=== PATIENT | female | born 1960 | race Caucasian/White ===

== ENCOUNTER → 2019-11-18 08:38 | Outpatient (CLI) | payer SELFPAY ==
--- NOTE | 2019-11-18 | PATH_ITS ---
Note [facility] Accession Number: [id number] TESTS RESULT FLAG UNITS REF RANGE LAB Clinician Provided Cytology Information No. of containers..01 Other (Miscellaneous) [A] 01 ABDOMINAL FLUID DIAGNOSIS: [A] 02 ABDOMINAL FLUID ATYPICAL CELLS PRESENT. IMMUNOHISTOCHEMISTRY STUDIES PENDING; RESULTS WILL BE REPORTED AN ADDENDUM. Comment: Attempts to reach Dr. Orozco were unsuccessful as of 1:10 on 11/21/19; voice mail left. Pathologist ICD10: 02 R18.0 02 DIAGNOSIS: Ascites Fluid: Poorly differentiated adenocarcinoma, primary site indeterminate. . IMMUNOHISTOCHEMISTRY RESULTS: GAB: Uniformly positive. CK7: Uniformly positive. MOC31: Uniformly positive. Huber-EP4: Uniformly positive. CK5/6: Focally positive. PAX-8: Negative. GATA3: Negative. CK20: Negative. Hep Par-1: Negative. Calretinin: Negative. WT1: Negative. P40: Negative. TTF1: Negative. Napsin-A: Negative. CDX2: Negative. Villin: Negative. Arginase: Negative. Synaptophysin: Negative. ER: Negative. . The neoplastic cells are uniformly immunopositive for GAB, CK7, MOC31, and Huber-EP4 with focal positivity of CK5/6. The neoplasm is immunonegative for CK20, ER, synaptophysin, p40, and calretinin. Organ-specific markers (WT-1, Hep Par-1, arginase, PAX-8, TTF1, napsin-A, GATA3, CDX2, and villin) are negative. These studies are consistent with a diagnosis of adenocarcinoma, primary site indeterminate. Please correlate these findings with clinical and imaging studies. . These interpretations were provided by Dr. Frances Matamoros. . IHC studies were performed on alcohol-fixed specimens and false negative results cannot be excluded. . * This test was developed and its performance characteristics determined by [employer]. It has not been cleared or approved by the U.S. Food and Drug Administration. The FDA has determined that such clearance or approval is not necessary. This test is used for clinical purposes. It should not be regarded as investigational or for research. MRV/11/28/2019 Addendum Electronically Signed by Edith Cook MD, Pathologist 02 Edith Cook MD, Pathologist NPI- [id number] Charly Cardoso, [place] [facility] ([facility]) 01 50 CC, YELLOW, HAZY /LCS 11/20/2019 1211 Local FLAG LEGEND: L-Low Normal,H-High Normal,LL-Alert Low,HH-Alert High <-Panic Low,>-Panic High,A-Abnormal,AA-Critical Abnormal Performed at: 01 =Z [facility] [address] [address] Neo Cordero MD, 02 [facility] [address] [address] Radha Pantoja MD, Specimen Comment: A duplicate report has been generated due to demographic updates. Performed at: 01 [facility] [address], [place] [id number] MD Neo Cordero MD Phone: [phone]
--- NOTE | 2019-11-18 | DI.US.S_ITS ---
PROCEDURE: US PARACENTESIS INDICATIONS: ASCITIES TECHNIQUE: The indications, alternatives, benefits, risks, and complications of the procedure were explained to the patient. Written informed consent was obtained and placed in the chart. The abdomen and pelvis were examined sonographically, and an appropriate site was chosen for paracentesis. The skin was prepared and draped in the usual sterile fashion, and 1% lidocaine was infiltrated from the skin down through the peritoneal surface. A 19-gauge catheter-covered needle was then introduced into the peritoneal space, the catheter was advanced and the needle was withdrawn, and thereafter peritoneal fluid was withdrawn. The catheter was then removed and a dressing was applied. The fluid was discarded if the clinician did not order diagnostic testing of the fluid. COMPARISON: None. FINDINGS: Access site: Right lower quadrant Needle: One-Step centesis catheter with introducer needle. Fluid volume and description: 5000 mL Serosanguineous Fluid sent for diagnostic testing: yes, per ordering physician Medications: 1% lidocaine for local anaesthesia. Complications: None. IMPRESSION: Successful ultrasound-guided paracentesis. The patient complained of nausea and discomfort prior to paracentesis. She was advised to be evaluated in the emergency department. Dictated by: Sade Ruth M.D. on 11/18/2019 at 12:36 Approved by: Sade Ruth M.D. on 11/18/2019 at 12:39
[2019-11-18 09:02] LABS: Add Manual Diff / Slide Review NO; Basophils Absolute Auto 0 /uL (0-100); Basophils Percent Auto 0.1 % (0-2); Eosinophils Absolute Auto 500 /uL (0-450); Eosinophils Percent Auto 2.4 % (2-4); Hematocrit 43.1 % (36-46); Lymphocytes Absolute Auto 700 /uL (1100-4500); Lymphocytes Percent Auto 3.4 % (25-40); Mean Corpuscular HGB Conc 34.7 % (30-36); Mean Corpuscular Hemoglobin 31.5 PG (26-34); Mean Corpuscular Volume 90.9 fL (80-100); Monocytes Absolute Auto 1600 /uL (0-900); Monocytes Percent Auto 8.5 % (3-14); Neutrophils Absolute Auto 16500 /uL (1500-7000); Neutrophils Percent Auto 85.6 % (50-75); Platelet Count 527 X10^3/uL (150-400); Red Blood Cell Count 4.74 X10^6/uL (4.0-5.2); White Blood Cell Count 19.3 X10^3/uL (4.5-11.0)
[2019-11-18 09:19] LABS: INR 1.1 (0.9-1.3); Prothrombin Time 13.2 SECONDS (10.1-12.7)
== END ==
PROVIDERS: Visit Provider Physician Assistant Medical
DX: R18.8 Other ascites (principal); R11.0 Nausea
CPT/HCPCS: 36415; 49083; 85025; 85610

== ENCOUNTER 2019-11-20 08:34 | Emergency (ER) | payer SELFPAY ==
[2019-11-20 08:47] VITALS: BP 132/68; PULSE 105; RESP 17; TEMP 36.2; O2SAT 97; BMI 30.5
--- NOTE | 2019-11-20 09:04 | ED_ITS ---
HPI - Extremity Injury (Upper) General Chief Complaint: Extremity Injury, Upper Stated Complaint: LEFT HAND NUMBNESS,DRY HEAVING Time Seen by Provider: 11/20/19 08:43 Source: patient and family Mode of arrival: Wheelchair Limitations: no limitations History of Present Illness HPI narrative: Patient is a 59-year-old female with history of liver cirrhosis and alcohol abuse presenting with 2 hours of left arm coolness and tingling, she said it started 2 hours prior to her arrival she was okay yesterday this morning she woke up and felt like it was hurting and cannot find a comfortable position. She denies any weakness speech difficulty any other extremity weakness numbness or tingling. She has no headache facial droop or slurring of speech. Her arm is found to be pale and cool to touch. She had a paracentesis done here 2 days ago for her ascites. This seems to be a new diagnosis for her. She has only been seen by her PCP 1 time. MD complaint: injury to: left and hand Onset (ago): hour(s) (2) Related Data Home Medications Medication Instructions Recorded Confirmed furosemide 40 mg PO DAILY 11/20/19 11/20/19 spironolactone 100 mg PO DAILY 11/20/19 11/20/19 Allergies Allergy/AdvReac Type Severity Reaction Status Date / Time No Known Drug Allergies Allergy Verified 11/20/19 11:32 Review of Systems Review of Systems ROS Unobtainable: All systems reviewed & are unremarkable except as noted in HPI and below Constitutional Constitutional: Denies chills, Denies fever(s), Denies lethargy and Denies weakness ENT Ears, Nose, Mouth, and Throat: Denies change in voice, Denies neck pain and Denies sore throat Cardiovascular Cardiovascular: Denies chest pain, Denies irregular heart rhythm, Denies lightheadedness, Denies palpitations and Denies orthopnea Gastrointestinal Gastrointestinal: Reports as per HPI Comments: Distension Musculoskeletal Musculoskeletal: Reports as per HPI, Denies neck pain, Reports numbness (Left hand) and Reports tingling (Left hand) Integumentary/Breasts Skin/Breast: Denies pruritus, Denies erythema, Denies rash and Denies wounds Neurologic Neurologic: Reports numbness (Left hand), Reports tingling (Left hand) and Denies weakness Endocrine Endocrine: Denies palpitations Patient History Medical History Cirrhosis (Acute) Social History Smoking Status: Former smoker Smoking Status: Former smoker alcohol intake frequency: holidays/special occasions only Substance Use Type: does not use Exam Initial Vital Signs Initial Vital Signs: Vital Signs Temperature 97.2 F L 11/20/19 08:47 Pulse Rate 105 H 11/20/19 08:47 Respiratory Rate 17 11/20/19 08:47 Blood Pressure 132/68 11/20/19 08:47 Pulse Oximetry 97 11/20/19 08:47 GENERAL: Well-appearing, well-nourished and in no acute distress. HEENT: Head atraumatic,EOMI, pupils reactive, face symmetric CARDIOVASCULAR: Regular rate and rhythm without murmurs, rubs or gallops. RESPIRATORY: Breath sounds equal bilaterally, no wheezes rales or rhonchi. ABDOMEN: Soft, distension no tenderness EXTREMITIES: Normal range of motion, no clubbing or edema. Neurovascularly intact Left hand is cool and pale to touch. No palpable radial pulse. Moving fingers cap refill greater than 2 seconds NEUROLOGICAL: Alert and oriented x4.Normal gait and speech. Cranial nerves II through XII grossly intact. SKIN: Warm, dry, no laceration, no petechiae, no rashes or lesions. Course Orders Ordered: ED Orders 11/20/19 09:04 US arterial duplex UE LT Stat 11/20/19 10:43 EKG-12 Lead Stat Discontinued Medications Heparin Sodium (Porcine) (Heparin) 7,500 unit 80 unit/kg (7500 unit) IV NOW ONE Stop: 11/20/19 10:20 Last Admin: 11/20/19 10:43 Dose: 7,500 unit Documented by: BLANCA Heparin Sodium/Dextrose (Heparin Drip) 25,000 unit in 500 mls @ 22.535 mls/hr IV CONT JUAN; Protocol Last Titration: 11/20/19 12:38 Dose: 12 units/kg/hr, 22.535 mls/hr Documented by: Admin: 11/20/19 10:46 Dose: 12 units/kg/hr, 22.535 mls/hr Documented by: BLANCA Morphine Sulfate (Morphine) 2 mg IV NOW ONE Stop: 11/20/19 11:00 Last Admin: 11/20/19 11:10 Dose: 2 mg Documented by: BLANCA Morphine Sulfate (Morphine) 2 mg IV NOW ONE Stop: 11/20/19 11:01 Last Admin: 11/20/19 11:09 Dose: Not Given Documented by: BLANCA Consultations Consultation #1: Vascular Serjio WINTER, updated patient's symptoms test results agrees with heparin drip at current dosing, will talk to surgeon recommend talking to hospitalist Time: 10:45 Consultation #2: Dr. Gonzalez, hospitalist at [facility] updated patient's symptoms test results Time: 10:54 Vital Signs Vital signs: Vital Signs - 8 hr 11/20/19 11:34 11/20/19 12:00 Pulse Rate 78 81 Respiratory Rate 16 21 Blood Pressure [Right Arm] 97/67 109/69 Pulse Oximetry 97 95 MDM - Extremity Injury (Upper) Lab Data Attestation: I reviewed the patient's lab results. Result diagrams: 11/20/19 08:36 11/20/19 08:36 Labs: Lab Results 11/20/19 11/20/19 11/20/19 Range/Units 08:36 08:36 08:36 WBC 20.8 H (4.5-11.0) X10^3/uL RBC 4.89 (4.0-5.2) X10^6/uL Hgb 15.3 (12.0-16.0) g/dL Hct 44.3 (36-46) % MCV 90.8 (80-100) fL MCH 31.4 (26-34) PG MCHC 34.6 (30-36) % RDW 13.2 (11.6-14.8) % Plt Count 398 (150-400) X10^3/uL Neut % (Auto) 84.9 H (50-75) % Lymph % (Auto) 2.8 L (25-40) % [place] % (Auto) 8.3 (3-14) % Eos % (Auto) 3.6 (2-4) % Baso % (Auto) 0.4 (0-2) % Neut # (Auto) 64902 H (9161-1541) /uL Lymph # (Auto) 600 L (2046-6228) /uL [place] # (Auto) 1700 H (0-900) /uL Eos # (Auto) 700 H (0-450) /uL Baso # (Auto) 100 (0-100) /uL PT 13.0 H (10.1-12.7) SECONDS INR 1.1 (0.9-1.3) APTT 28 (26.4-36.2) SECONDS Sodium 124 L (137-145) mmol/L Potassium 3.6 (3.4-5.1) mmol/L Chloride 85 L (98-107) mmol/L Carbon Dioxide 26 (22-32) mmol/L BUN 11 (7-17) mg/dL Creatinine 0.60 (0.52-1.04) mg/dL Estimated GFR > 60.0 (>60) mL/min BUN/Creatinine Ratio 18.3 (6-22) Glucose 130 H (70-100) mg/dL Calcium 8.4 (8.4-10.2) mg/dL Total Bilirubin 0.6 (0.2-1.3) mg/dL AST 23 (14-36) IU/L ALT 16 (<35) IU/L Alkaline Phosphatase 80 (38-126) U/L Total Protein 6.2 L (6.3-8.2) g/dL Albumin 3.5 (3.5-5.0) g/dL Globulin 2.7 (1.7-4.1) g/dL Albumin/Globulin Ratio 1.3 (1.0-2.8) Imaging Data US UE left: Radiologist's Impression: PROCEDURE: US ARTERIAL DUPLEX UE LT INDICATIONS: COLD HAND TECHNIQUE: Color and pulse Doppler interrogation was performed of the left upper extremity arterial systems, with image documentation. COMPARISON: None. FINDINGS: Normal flow velocity within the common carotid artery. There is acute appearing pulsatile nonocclusive thrombus within the proximal subclavian artery, with monophasic diminished waveforms distally. Axillary and brachial arteries are patent. There is no flow seen within the radial artery. There is no flow seen within the distal ulnar artery. No flow is seen within the palmar arch, which is difficult to visualize. IMPRESSION: 1. Nonocclusive acute thrombus within the proximal left subclavian artery. 2. Occlusion of the radial artery. 3. Occlusion of the distal ulnar artery. 4. Suboptimal visualization of the palmar arch which demonstrates no visible flow. Dictated by: Sylvester Santacruz M.D. on 11/20/2019 at 10:46 ECG Data Attestation: I personally reviewed and interpreted this ECG as follows: Prior ECG tracings: not available for review Interpretation: Normal sinus rhythm rate 81 p.r. interval 152 QRS 88 QTC 433 no prior to compare MDM Narrative Medical decision making narrative: Patient has cool pale arm without palpable pulse, ultrasound confirms acute thrombosis. Heparin drip is started with a bolus. She is noted to have leukocytosis of 20,000 however 2 days ago it was 19,000. She has no fever or pain. Vascular surgery PA at [place] has been consulted recommends talking with Internal Medicine possibly admitting to internal medicine in regards to cirrhosis and ascites. I spoke with Dr. Gonzalez hospitalist for patient be admitted to vascular [facility], transfer center states they will figure out who patient is admitted to patient has a bed and we are ready to call for transport. At this time no need to transfer to ER. Critical Care Time Critical Care Time Critical Care Time: Yes Total Critical Care Time: 45 Attestation: The high probability of a clinically significant, sudden or life threatening deterioration of the [cardiovascular] system(s) required my full and direct attention, intervention and personal management. The aggregate critical care time was [45] minutes. This time is in addition to time spent performing reported procedures but includes the following: [x] Data Review and interpretation [x] Patient assessment and monitoring of vital signs [x] Documentation [x] Medication orders and management Discharge Plan Departure [facility]position: [facility] Clinical Impression: Subclavian artery thrombosis, Radial artery thrombosis, left, Thrombosis of left ulnar artery Discharge Date/Time: 11/20/19 12:50 Prescriptions: No Action furosemide 40 mg tablet 40 mg PO DAILY RF: 0 spironolactone 100 mg tablet 100 mg PO DAILY RF: 0
[2019-11-20 09:23] LABS: Add Manual Diff / Slide Review NO; Basophils Absolute Auto 100 /uL (0-100); Basophils Percent Auto 0.4 % (0-2); Eosinophils Absolute Auto 700 /uL (0-450); Eosinophils Percent Auto 3.6 % (2-4); Hematocrit 44.3 % (36-46); Hemoglobin 15.3 g/dL (12.0-16.0); Lymphocytes Absolute Auto 600 /uL (1100-4500); Lymphocytes Percent Auto 2.8 % (25-40); Mean Corpuscular HGB Conc 34.6 % (30-36); Mean Corpuscular Hemoglobin 31.4 PG (26-34); Mean Corpuscular Volume 90.8 fL (80-100); Monocytes Absolute Auto 1700 /uL (0-900); Monocytes Percent Auto 8.3 % (3-14); Neutrophils Absolute Auto 17700 /uL (1500-7000); Neutrophils Percent Auto 84.9 % (50-75); Platelet Count 398 X10^3/uL (150-400); Red Blood Cell Count 4.89 X10^6/uL (4.0-5.2); Red Cell Distribution Width 13.2 % (11.6-14.8); White Blood Cell Count 20.8 X10^3/uL (4.5-11.0)
[2019-11-20 09:25] LABS: INR 1.1 (0.9-1.3)
[2019-11-20 09:27] LABS: PTT Partial Thromboplastin Tim 28 SECONDS (26.4-36.2)
[2019-11-20 09:29] LABS: Alanine Aminotransferase 16 IU/L (<35); Albumin 3.5 g/dL (3.5-5.0); Albumin Globulin Ratio 1.3 (1.0-2.8); Alkaline Phosphatase 80 U/L (38-126); Aspartate Aminotransferase 23 IU/L (14-36); BUN Creatinine Ratio 18.3 (6-22); Bilirubin Total 0.6 mg/dL (0.2-1.3); Blood Urea Nitrogen 11 mg/dL (7-17); Calcium 8.4 mg/dL (8.4-10.2); Carbon Dioxide 26 mmol/L (22-32); Chloride 85 mmol/L (98-107); Estimated Glomerular Filt Rate > 60.0 mL/min (>60); Globulin 2.7 g/dL (1.7-4.1); Glucose 130 mg/dL (70-100); HEMOLYSIS 18 (0-50); Potassium 3.6 mmol/L (3.4-5.1); Sodium 124 mmol/L (137-145); Total Protein 6.2 g/dL (6.3-8.2)
[2019-11-20 09:45] VITALS: BP 101/53; PULSE 87; RESP 20; O2SAT 97
[2019-11-20] MEDS: HEPARIN 5,000 UNIT/ML VIAL 7500 UNIT IV (10:43)
[2019-11-20] MEDS: HEPARIN DRIP 25,000 UNIT/500 ML IV.SOLN 22.535 UNIT IV (10:46)
[2019-11-20] MEDS: MORPHINE 2 MG/ML INJ IV (11:10)
--- NOTE | 2019-11-20 11:21 | PC.NURSE ---
Pt arrvied to ED with c/o numbness and tingling of LUE. decreased L radial pulse, pallor and no noted cap refill. MD made aware. US shows arterial occlusion. IV placed. pt attached to cardiac monitoring. spouse at bedside. c/o pain. given morphine 2 mg IV per order. heparin bolus and gtt infusing per order. unfractionated heparin due at 1645. Pt resting in bed NAD. awaiting transport to [place].
[2019-11-20 11:34] VITALS: BP 97/67; PULSE 78; RESP 16; O2SAT 97
[2019-11-20 12:00] VITALS: BP 109/69; PULSE 81; RESP 21; O2SAT 95
== END 2019-11-20 12:50 | disposition short-term general hospital (02) ==
PROVIDERS: Emergency Provider Emergency Medicine
DX: I82.622 Acute embolism and thrombosis of deep veins of left upper extremity (principal); I82.B12 Acute embolism and thrombosis of left subclavian vein
CPT/HCPCS: 36415; 80053; 85025; 85610; 85730; 93005; 93931; 96365; 96375; 99284; 99291; J1644; J2270

== ENCOUNTER 2020-01-15 13:48 | Emergency (ER) | payer OTHER, MEDICAID, SELFPAY ==
[2020-01-15 14:24] VITALS: BP 112/75; PULSE 121; RESP 20; TEMP 37.1; O2SAT 99; BMI 26.6
--- NOTE | 2020-01-15 15:53 | DI.RAD.S_ITS ---
PROCEDURE: XR ACUTE ABDOMEN SERIES INDICATIONS: abd pain, vomiting TECHNIQUE: One view chest and two views of the abdomen were acquired. COMPARISON: None. FINDINGS: Surgical changes and devices: None. Chest: Lungs are abnormal with what appears to be a moderate-sized subpulmonic right pleural effusion and crowding of the bronchovascular markings at each lung base, right greater than left. Heart size is normal. No pleural effusions. No pneumoperitoneum. Abdomen: Bowel gas pattern is abnormal, with small bowel loops prominent over the midabdomen centered at L2 the left of midline and at the right lower abdomen to a small degree.. No suspicious calcifications. Visualized solid organ contours appear normal. Bones: No suspicious bony lesions. IMPRESSION: Asymmetric air space opacification right greater than left associated with the moderate size subpulmonic right effusion which may be neoplastic in origin in this clinical circumstance of reported ovarian carcinoma. There is a small bowel obstruction pattern, early, within the abdomen greater on the left than the right. Followup CT scanning may be warranted. Dictated by: Shun Kincaid M.D. on 01/15/2020 at 16:40 Approved by: Shun Kincaid M.D. on 01/15/2020 at 16:42
--- NOTE | 2020-01-15 16:05 | PC.NURSE ---
Patient refuses lab draw for second set of blood cultures. 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
[2020-01-15 16:16] LABS: Hematocrit 29.2 % (36-46); Hemoglobin 9.9 g/dL (12.0-16.0); Mean Corpuscular HGB Conc 33.8 % (30-36); Mean Corpuscular Hemoglobin 30.9 PG (26-34); Mean Corpuscular Volume 91.4 fL (80-100); Platelet Count 295 X10^3/uL (150-400); Red Blood Cell Count 3.19 X10^6/uL (4.0-5.2); Red Cell Distribution Width 16.8 % (11.6-14.8); White Blood Cell Count 4.6 X10^3/uL (4.5-11.0)
[2020-01-15 16:17] LABS: Add Manual Diff / Slide Review YES
[2020-01-15] MEDS: SODIUM CHLORIDE 0.9% 1,000 ML 1000 ML IV (16:17)
[2020-01-15] MEDS: ONDANSETRON 4 MG/2 ML INJ IV (16:17)
[2020-01-15 16:19] LABS: INR 2.1 (0.9-1.3); Prothrombin Time 23.4 SECONDS (10.1-12.7)
[2020-01-15 16:21] LABS: PTT Partial Thromboplastin Tim 31 SECONDS (26.4-36.2)
[2020-01-15 16:25] LABS: Alanine Aminotransferase 18 IU/L (<35); Albumin 2.6 g/dL (3.5-5.0); Albumin Globulin Ratio 0.8 (1.0-2.8); Alkaline Phosphatase 173 U/L (38-126); Aspartate Aminotransferase 23 IU/L (14-36); BUN Creatinine Ratio 57.5 (6-22); Bilirubin Total 0.2 mg/dL (0.2-1.3); Blood Urea Nitrogen 23 mg/dL (7-17); Calcium 8.1 mg/dL (8.4-10.2); Carbon Dioxide 24 mmol/L (22-32); Chloride 102 mmol/L (98-107); Estimated Glomerular Filt Rate > 60.0 mL/min (>60); Globulin 3.1 g/dL (1.7-4.1); Glucose 100 mg/dL (70-100); HEMOLYSIS < 15 (0-50); Lipase 18 U/L (23-300); Sodium 135 mmol/L (137-145); Total Protein 5.7 g/dL (6.3-8.2)
[2020-01-15 16:33] LABS: Potassium 2.7 mmol/L (3.4-5.1)
--- NOTE | 2020-01-15 16:37 | ED_ITS ---
HPI - Abdominal Pain <JENNY Arteaga-BC - Last Filed: 01/15/20 21:35> General Chief Complaint: Abdominal Pain Stated Complaint: vomiting states has ascities Time Seen by Provider: 01/15/20 15:34 Source: patient and family Mode of arrival: Wheelchair Limitations: no limitations History of Present Illness HPI narrative: The patient is a 59-year-old female former smoker who presents with her for chief complaint of ascites and vomiting. She states that she was recently discharged from [place] less than a week ago, where she was inpatient for 2 months. 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 She also states that she was diagnosed with stage IV ovarian cancer. She states that while she was inpatient, her ascites was drained every week. She would like to do that again. She is undergoing chemotherapy at this time. States that she has had nausea and diarrhea since her discharge, and today has vomited at least 6 times. Records were obtained from [place], illustrate history of alcoholic cirrhosis, acute upper extremity arterial thrombosis with ischemic limb and subsequent metastatic ovarian cancer diagnosis. She denies any chest pain. 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 She is on TPN at this point time. Related Data Home Medications Medication Instructions Recorded Confirmed furosemide 40 mg PO DAILY 11/20/19 01/15/20 famotidine [Heartburn Relief 20 mg PO BID 01/15/20 01/15/20 (famotidine)] gabapentin 300 mg PO TID 01/15/20 01/15/20 hydromorphone 4 mg PO TID PRN 01/15/20 01/15/20 naloxone [Narcan] 1 spray INTRANASAL PRN PRN 01/15/20 01/15/20 ondansetron 4 mg PO Q6H PRN 01/15/20 01/15/20 rivaroxaban [Xarelto] 15 mg PO [id number] DOSES. 01/15/20 01/15/20 rivaroxaban [Xarelto] 20 mg PO DAILY 01/15/20 01/15/20 spironolactone 50 mg PO DAILY 01/15/20 01/15/20 Allergies Allergy/AdvReac Type Severity Reaction Status Date / Time No Known Drug Allergies Allergy Verified 01/15/20 14:24 Review of Systems <JENNY Arteaga- - Last Filed: 01/15/20 21:35> Review of Systems Narrative: GENERAL: see HPI HEENT: Denies sinus pain, ear pain, sore throat, difficulty swallowing, dizziness. RESPIRATORY: Denies dyspnea, cough, wheezing, hemoptysis, sputum. CARDIOVASCULAR: Denies chest pain, palpitations, orthopnea, edema, GASTROINTESTINAL: See HPI : Denies dysuria, frequency, incontinence, hematuria, urinary retention. MUSCULOSKELETAL: denies weakness, joint pain, or bony pain SKIN: Denies rash, skin lesions, or other NEUROLOGIC: Denies weakness, headache, numbness, change in speech, confusion, seizures, incoordination. PSYCHIATRIC: No concerning psychosocial issues. 12 point review of systems is negative except for those stated above Patient History <[facility] - Last Filed: 01/15/20 21:35> Social History Smoking Status: Former smoker Smoking Status: Former smoker alcohol intake frequency: holidays/special occasions only Substance Use Type: does not use Exam <Suzette Krueger [facility]- - Last Filed: 01/15/20 21:35> Narrative Exam Narrative: GENERAL: Chronically ill appearing female lying on stretcher. HEAD: Atraumatic. Normocephalic. No temporal or scalp tenderness. EYES: Pupils equal round and reactive. Extraocular motions intact. No scleral icterus. No injection or drainage. ENT: Nose without bleeding, purulent drainage or septal hematoma. Throat without erythema, tonsillar hypertrophy or exudate. Uvula midline. Airway patent. NECK: Trachea midline. No JVD or lymphadenopathy. Supple, nontender, no meningeal signs. CARDIOVASCULAR: Regular rate and rhythm RESPIRATORY: Clear to auscultation. Breath sounds equal bilaterally. No wheezes, rales, or rhonchi. No cough. No increased respiratory effort. No accessory muscle use. GASTROINTESTINAL: Abdomen soft, protuberant, nondistended. Several palpable masses noted. Slight guarding noted. Active bowel sounds all 4 quadrants EXTREMITIES: No clubbing, cyanosis, or edema. No joint tenderness, effusion, or edema noted. BACK: Nontender without deformity or crepitance. No flank tenderness. NEURO: AOx3. SKIN: No rash or erythema on visible skin Initial Vital Signs Initial Vital Signs: Vital Signs Temperature 98.8 F 01/15/20 14:24 Pulse Rate 121 H 01/15/20 14:24 Respiratory Rate 01/15/20 14:24 Blood Pressure 112/75 01/15/20 14:24 Pulse Oximetry 99 01/15/20 14:24 <Percy Muir DO - Last Filed: 01/15/20 22:09> Initial Vital Signs Initial Vital Signs: Vital Signs Temperature 98.8 F 01/15/20 14:24 Pulse Rate 121 H 01/15/20 14:24 Respiratory Rate 01/15/20 14:24 Blood Pressure 112/75 01/15/20 14:24 Pulse Oximetry 99 01/15/20 14:24 Course <NICOL Arteaga - Last Filed: 01/15/20 21:35> Orders Ordered: ED Orders 01/15/20 14:39 EKG-12 Lead Stat 01/15/20 15:53 XR acute abdomen series Stat 01/15/20 16:00 Blood Culture Stat Complete Blood Count AUTO DIFF Stat Comprehensive Metabolic Panel Stat Lipase Stat Magnesium Stat Partial Thromboplastin Time Stat Procalcitonin Stat Prothrombin Time INR Stat 01/15/20 17:02 CT abdomen pelvis w con Stat 01/15/20 20:59 Potassium Stat Discontinued Medications Sodium Chloride (Normal Saline 0.9%) 1,000 mls @ 1,000 mls/hr IV BOLUS ONE Stop: 01/15/20 17:01 Last Infusion: 01/15/20 19:45 Dose: 0 mls/hr Documented by: Admin: 01/15/20 16:17 Dose: 1,000 mls/hr Documented by: ROB Potassium Chloride 40 meq/ (Sodium Chloride) 520 mls @ 130 mls/hr IV NOW ONE Stop: 01/15/20 20:33 Last Infusion: 01/15/20 21:57 Dose: 0 mls/hr Documented by: ROB Cosigned by: [email or web address] Admin: 01/15/20 16:43 Dose: 130 mls/hr Documented by: ROB Cosigned by: ANDREAOTEM Ondansetron HCl (Zofran) 4 mg IV NOW ONE Stop: 01/15/20 16:03 Last Admin: 01/15/20 16:17 Dose: 4 mg Documented by: ROB Potassium Chloride (Potassium Chloride) 40 meq PO NOW ONE Stop: 01/15/20 19:58 Last Admin: 01/15/20 20:03 Dose: 40 meq Documented by: ROB Consultations Consultation #1: I spoke with Dr Rand from a [facility] was on-call for the patient's oncologist. Discussed at length with the on-call the patient's lab work, potassium of 2.7, presenting complaints, CT scan results. Discussed with the patient presents requesting to have her ascites drained. On-call states that she does not think this is necessary at this point time given the patient's stable vital signs. Discussed that the patient is appropriate for discharge as long as she keep down fluids and her potassium was replaced. Hematology oncology clinic should reach out to the patient tomorrow. Time: 20:10 Vital Signs Vital signs: Vital Signs - 8 hr 01/15/20 14:24 01/15/20 16:55 01/15/20 19:21 Temperature 98.8 F Pulse Rate 121 H 104 H 110 H Respiratory Rate 20 21 Blood Pressure 112/75 Blood Pressure [Right Arm] 128/76 112/66 Pulse Oximetry 99 100 99 01/15/20 20:40 Temperature Pulse Rate 109 H Respiratory Rate Blood Pressure Blood Pressure [Right Arm] 112/68 Pulse Oximetry 100 <Percy Muir, - Last Filed: 01/15/20 22:09> Orders Ordered: ED Orders 01/15/20 14:39 EKG-12 Lead Stat 01/15/20 15:53 XR acute abdomen series Stat 01/15/20 16:00 Blood Culture Stat Complete Blood Count AUTO DIFF Stat Comprehensive Metabolic Panel Stat Lipase Stat Magnesium Stat Partial Thromboplastin Time Stat Procalcitonin Stat Prothrombin Time INR Stat 01/15/20 17:02 CT abdomen pelvis w con Stat 01/15/20 20:59 Potassium Stat Discontinued Medications Sodium Chloride (Normal Saline 0.9%) 1,000 mls @ 1,000 mls/hr IV BOLUS ONE Stop: 01/15/20 17:01 Last Infusion: 01/15/20 19:45 Dose: 0 mls/hr Documented by: Admin: 01/15/20 16:17 Dose: 1,000 mls/hr Documented by: ROB Potassium Chloride 40 meq/ (Sodium Chloride) 520 mls @ 130 mls/hr IV NOW ONE Stop: 01/15/20 20:33 Last Infusion: 01/15/20 21:57 Dose: 0 mls/hr Documented by: ROB Cosigned by: DAGO Admin: 01/15/20 16:43 Dose: 130 mls/hr Documented by: ROB Cosigned by: VANITA Ondansetron HCl (Zofran) 4 mg IV NOW ONE Stop: 01/15/20 16:03 Last Admin: 01/15/20 16:17 Dose: 4 mg Documented by: ROB Potassium Chloride (Potassium Chloride) 40 meq PO NOW ONE Stop: 01/15/20 19:58 Last Admin: 01/15/20 20:03 Dose: 40 meq Documented by: ROB Vital Signs Vital signs: Vital Signs - 8 hr 01/15/20 14:24 01/15/20 16:55 01/15/20 19:21 Temperature 98.8 F Pulse Rate 121 H 104 H 110 H Respiratory Rate 20 21 Blood Pressure 112/75 Blood Pressure [Right Arm] 128/76 112/66 Pulse Oximetry 99 100 99 01/15/20 20:40 Temperature Pulse Rate 109 H Respiratory Rate Blood Pressure Blood Pressure [Right Arm] 112/68 Pulse Oximetry 100 MDM - Abdominal Pain <NICOL Arteaga - Last Filed: 01/15/20 21:35> Lab Data Result diagrams: 01/15/20 16:00 01/15/20 20:59 Labs: Lab Results 01/15/20 01/15/20 01/15/20 Range/Units 16:00 16:00 16:00 WBC 4.6 (4.5-11.0) X10^3/uL RBC 3.19 L (4.0-5.2) X10^6/uL Hgb 9.9 L (12.0-16.0) g/dL Hct 29.2 L (36-46) % MCV 91.4 (80-100) fL MCH 30.9 (26-34) PG MCHC 33.8 (30-36) % RDW 16.8 H (11.6-14.8) % Plt Count 295 (150-400) X10^3/uL Neut % (Auto) Not Reportable Lymph % (Auto) Not Reportable [place] % (Auto) Not Reportable Eos % (Auto) Not Reportable Baso % (Auto) Not Reportable Lymph # (Auto) Not Reportable [place] # (Auto) Not Reportable Baso # (Auto) Not Reportable Total Counted 100 Seg Neutrophils % 43.0 (38-70) % Band Neutrophils % 17.0 H (3-7) % Lymphocytes % (Manual) 17.0 L (25-45) % Monocytes % (Manual) 20.0 H (2-11) % Metamyelocytes % 2.0 H (-0) % Myelocytes % 1.0 H (-0) % Neutrophils # (Manual) 2760 L (3950-6422) /uL Nucleated RBCs 1 H ( - 0) #/Diff RBC Morphology See below Polychromasia 1+ H Macrocytosis 1+ H PT 23.4 H (10.1-12.7) SECONDS INR 2.1 H (0.9-1.3) APTT 31 D (26.4-36.2) SECONDS Sodium 135 L (137-145) mmol/L Potassium 2.7 L* (3.4-5.1) mmol/L Chloride 102 (98-107) mmol/L Carbon Dioxide 24 (22-32) mmol/L BUN 23 H (7-17) mg/dL Creatinine 0.40 L (0.52-1.04) mg/dL Estimated GFR > 60.0 (>60) mL/min BUN/Creatinine Ratio 57.5 H (6-22) Glucose 100 (70-100) mg/dL Calcium 8.1 L (8.4-10.2) mg/dL Magnesium (1.6-2.3) mg/dL Total Bilirubin 0.2 (0.2-1.3) mg/dL AST 23 (14-36) IU/L ALT 18 (<35) IU/L Alkaline Phosphatase 173 H (38-126) U/L Total Protein 5.7 L (6.3-8.2) g/dL Albumin 2.6 L (3.5-5.0) g/dL Globulin 3.1 (1.7-4.1) g/dL Albumin/Globulin Ratio 0.8 L (1.0-2.8) Lipase 18 L (23-300) U/L Procalcitonin (<0.5) ng/mL 01/15/20 01/15/20 01/15/20 Range/Units 16:00 16:00 20:59 WBC (4.5-11.0) X10^3/uL RBC (4.0-5.2) X10^6/uL Hgb (12.0-16.0) g/dL Hct (36-46) % MCV (80-100) fL MCH (26-34) PG MCHC (30-36) % RDW (11.6-14.8) % Plt Count (150-400) X10^3/uL Neut % (Auto) Lymph % (Auto) [place] % (Auto) Eos % (Auto) Baso % (Auto) Lymph # (Auto) [place] # (Auto) Baso # (Auto) Total Counted Seg Neutrophils % (38-70) % Band Neutrophils % (3-7) % Lymphocytes % (Manual) (25-45) % Monocytes % (Manual) (2-11) % Metamyelocytes % (-0) % Myelocytes % (-0) % Neutrophils # (Manual) (2749-0894) /uL Nucleated RBCs ( - 0) #/Diff RBC Morphology Polychromasia Macrocytosis PT (10.1-12.7) SECONDS INR (0.9-1.3) APTT (26.4-36.2) SECONDS Sodium (137-145) mmol/L Potassium 3.0 L (3.4-5.1) mmol/L Chloride (98-107) mmol/L Carbon Dioxide (22-32) mmol/L BUN (7-17) mg/dL Creatinine (0.52-1.04) mg/dL Estimated GFR (>60) mL/min BUN/Creatinine Ratio (6-22) Glucose (70-100) mg/dL Calcium (8.4-10.2) mg/dL Magnesium 1.9 (1.6-2.3) mg/dL Total Bilirubin (0.2-1.3) mg/dL AST (14-36) IU/L ALT (<35) IU/L Alkaline Phosphatase (38-126) U/L Total Protein (6.3-8.2) g/dL Albumin (3.5-5.0) g/dL Globulin (1.7-4.1) g/dL Albumin/Globulin Ratio (1.0-2.8) Lipase (23-300) U/L Procalcitonin 0.08 (<0.5) ng/mL Point of care testing: Urine Dip Bedside Urine Glucose Negative Bedside Urine Bilirubin - Negative Bedside Urine Ketone - Negative Urine Specific [place] 1.010 Bedside Urine Occult Blood - Negative Bedside Urine pH 6.0 Bedside Urine Protein - Negative Bedside Urine Urobilinogen - Negative Bedside Urine Nitrite - Negative Bedside Urine Leukocytes - Negative Esterase Imaging Data CT scan - abdomen/pelvis: Radiologist's Impression: [address] [place] [id number] Scan Report Signed Patient: Sho Eugene JMR#: [id number] : 1Acct:[id number] Age/Sex: 59 / FDate of Service: 01/15/20 Loc: ED Accession Number: [id number] Procedure: CT abdomen pelvis w con Ordering Provider: Suzette Krueger [employer]-BC PROCEDURE: CT ABDOMEN PELVIS W CON INDICATIONS: vomiting, hx small bowel obstruction, hx ovarian cancer TECHNIQUE: After the administration of intravenous contrast, 5 mm thick sections acquired from the diaphragm to the symphysis. 5 mm coronal and sagittal reformats were acquired. For radiation dose reduction, the following was used: automated exposure control, adjustment of mA and/or kV according to patient size. COMPARISON: [facility], CR, XR ACUTE ABDOMEN SERIES, 01/15/2020, 15:57. FINDINGS: Image quality: Excellent. ABDOMEN: Lung bases: Moderate right pleural effusion with adjacent atelectasis. Left lung appears clear. Solid organs: Liver is normal in size and enhancement. Gallbladder grossly unremarkable. Biliary system is non dilated. Pancreas enhances normally. Spleen is normal in size and enhancement. No adrenal nodules. Kidneys demonstrate normal size and enhancement, without hydronephrosis. Peritoneum and bowel: Diffuse small bowel wall thickening is present, although suboptimal evaluation given the presence of ascites. No definite transition point is seen. There are scattered air-fluid levels. The colon appears relatively decompressed. No free air. There is diffuse ascites. Nodes and vessels: No retroperitoneal or mesenteric adenopathy by size criteria. Aorta and inferior vena cava are normal in size. Miscellaneous: No ventral hernias. PELVIS: Genitourinary: Heterogeneous cystic and solid appearing pelvic mass, measuring approximately 9.3 x 16.9 cm presumably reflect the patient's given clinical history of ovarian carcinoma. There is associated omental caking/intraperitoneal metastases Miscellaneous: No inguinal hernias or adenopathy. Bones: No suspicious bony lesions. No vertebral body compression fractures. IMPRESSION: Scattered air-fluid levels and diffuse small bowel mural thickening, without specific transition point. Cannot exclude partial or developing bowel obstruction. If clinically warranted, continued surveillance with serial abdominal radiographs could be per formed. Of note, the appearance could be related to an infectious or inflammatory enteritis recommend clinical/laboratory correlation. Hypoproteinemia also in the differential. Large heterogeneous cystic and solid pelvic mass presumably reflecting the patient's given clinical history of ovarian carcinoma. Diffuse ascites and intraperitoneal metastases related to widespread metastatic disease. Moderate right pleural effusion with adjacent atelectasis Dictated by: Nicola Arciniega M.D. on 01/15/2020 at 17:54 Approved by: Nicola Arciniega M.D. on 01/15/2020 at 18:01 Abdominal x-ray: Radiologist's Impression: [address] [place] [id number] XRay Report Signed Patient: Sho Eugene JMR#: [id number] : 1Acct:[id number] Age/Sex: 59 / FDate of Service: 01/15/20 Loc: ED Accession Number: [id number] Procedure: XR acute abdomen series Ordering Provider: Suzette Krueger [facility] PROCEDURE: XR ACUTE ABDOMEN SERIES INDICATIONS: abd pain, vomiting TECHNIQUE: One view chest and two views of the abdomen were acquired. COMPARISON: None. FINDINGS: Surgical changes and devices: None. Chest: Lungs are abnormal with what appears to be a moderate-sized subpulmonic right pleural effusion and crowding of the bronchovascular markings at each lung base, right greater than left. Heart size is normal. No pleural effusions. No pneumoperitoneum. Abdomen: Bowel gas pattern is abnormal, with small bowel loops prominent over the midabdomen centered at L2 the left of midline and at the right lower abdomen to a small degree.. No suspicious calcifications. Visualized solid organ contours appear normal. Bones: No suspicious bony lesions. IMPRESSION: Asymmetric air space opacification right greater than left associated with the moderate size subpulmonic right effusion which may be neoplastic in origin in this clinical circumstance of reported ovarian carcinoma. There is a small bowel obstruction pattern, early, within the abdomen greater on the left than the right. Followup CT scanning may be warranted. Dictated by: Shun Kincaid M.D. on 01/15/2020 at 16:40 Approved by: Shun Kincaid M.D. on 01/15/2020 at 16:42 [facility] Narrative Medical decision making narrative: The patient is a 51-year-old female who presents with a chief complaint of vomiting and ascites. Very complicated medical history including alcoholic cirrhosis, stage IV ovarian cancer with metastasis and recent hand amputation. Given significant history, imaging was obtained of her abdomen. X-ray indicated small-bowel obstruction possibility, so a CT was obtained. This indicated indicating masses and widespread metastasis of her disease. There is no specific bowel obstruction, though she does have history of a malignant bowel obstruction. She is afebrile with no leukocytosis Normal renal function. Normal urinalysis. The patient requested multiple times to not be transfer back to [place], that she would rather be discharged. After IV fluids and Zofran, she was able to tolerate p.o. fluids. Her potassium was found to be 2.7 common replaced by IV and p.o.. I spoke with on-call provider from [facility], who states that the patient can follow-up with them and they will reach out to her tomorrow. Patient does not need a paracentesis at this point time as she has stable vital signs, is not tachypneic, oxygenating well. Additionally her heme Onc provider is scheduling these outpatient. The patient was able to keep down ice, general, p.o. potassium. I discussed at length very strict return precautions, the importance of following up with primary care provider as well as Hematology Oncology, the importance of coming back to the emergency department for any acute concerns. Patient initially declined potassium review check, later consented. Repeat potassium after 40 mEq KCL IV and 40 and acutely cm p.o. is 3.0. Discussed at length the importance of following up with primary care provider as well as Heme-Onc. Patient and state comfort going home. No questions or concerns upon discharge. <Percy Muir, DO - Last Filed: 01/15/20 22:09> Lab Data Labs: Lab Results 01/15/20 01/15/20 01/15/20 Range/Units 16:00 16:00 16:00 WBC 4.6 (4.5-11.0) X10^3/uL RBC 3.19 L (4.0-5.2) X10^6/uL Hgb 9.9 L (12.0-16.0) g/dL Hct 29.2 L (36-46) % MCV 91.4 (80-100) fL MCH 30.9 (26-34) PG MCHC 33.8 (30-36) % RDW 16.8 H (11.6-14.8) % Plt Count 295 (150-400) X10^3/uL Neut % (Auto) Not Reportable Lymph % (Auto) Not Reportable [place] % (Auto) Not Reportable Eos % (Auto) Not Reportable Baso % (Auto) Not Reportable Lymph # (Auto) Not Reportable [place] # (Auto) Not Reportable Baso # (Auto) Not Reportable Total Counted 100 Seg Neutrophils % 43.0 (38-70) % Band Neutrophils % 17.0 H (3-7) % Lymphocytes % (Manual) 17.0 L (25-45) % Monocytes % (Manual) 20.0 H (2-11) % Metamyelocytes % 2.0 H (-0) % Myelocytes % 1.0 H (-0) % Neutrophils # (Manual) 2760 L (4568-4307) /uL Nucleated RBCs 1 H ( - 0) #/Diff RBC Morphology See below Polychromasia 1+ H Macrocytosis 1+ H PT 23.4 H (10.1-12.7) SECONDS INR 2.1 H (0.9-1.3) APTT 31 D (26.4-36.2) SECONDS Sodium 135 L (137-145) mmol/L Potassium 2.7 L* (3.4-5.1) mmol/L Chloride 102 (98-107) mmol/L Carbon Dioxide 24 (22-32) mmol/L BUN 23 H (7-17) mg/dL Creatinine 0.40 L (0.52-1.04) mg/dL Estimated GFR > 60.0 (>60) mL/min BUN/Creatinine Ratio 57.5 H (6-22) Glucose 100 (70-100) mg/dL Calcium 8.1 L (8.4-10.2) mg/dL Magnesium (1.6-2.3) mg/dL Total Bilirubin 0.2 (0.2-1.3) mg/dL AST 23 (14-36) IU/L ALT 18 (<35) IU/L Alkaline Phosphatase 173 H (38-126) U/L Total Protein 5.7 L (6.3-8.2) g/dL Albumin 2.6 L (3.5-5.0) g/dL Globulin 3.1 (1.7-4.1) g/dL Albumin/Globulin Ratio 0.8 L (1.0-2.8) Lipase 18 L (23-300) U/L Procalcitonin (<0.5) ng/mL 01/15/20 01/15/20 01/15/20 Range/Units 16:00 16:00 20:59 WBC (4.5-11.0) X10^3/uL RBC (4.0-5.2) X10^6/uL Hgb (12.0-16.0) g/dL Hct (36-46) % MCV (80-100) fL MCH (26-34) PG MCHC (30-36) % RDW (11.6-14.8) % Plt Count (150-400) X10^3/uL Neut % (Auto) Lymph % (Auto) [place] % (Auto) Eos % (Auto) Baso % (Auto) Lymph # (Auto) [place] # (Auto) Baso # (Auto) Total Counted Seg Neutrophils % (38-70) % Band Neutrophils % (3-7) % Lymphocytes % (Manual) (25-45) % Monocytes % (Manual) (2-11) % Metamyelocytes % (-0) % Myelocytes % (-0) % Neutrophils # (Manual) (5770-0389) /uL Nucleated RBCs ( - 0) #/Diff RBC Morphology Polychromasia Macrocytosis PT (10.1-12.7) SECONDS INR (0.9-1.3) APTT (26.4-36.2) SECONDS Sodium (137-145) mmol/L Potassium 3.0 L (3.4-5.1) mmol/L Chloride (98-107) mmol/L Carbon Dioxide (22-32) mmol/L BUN (7-17) mg/dL Creatinine (0.52-1.04) mg/dL Estimated GFR (>60) mL/min BUN/Creatinine Ratio (6-22) Glucose (70-100) mg/dL Calcium (8.4-10.2) mg/dL Magnesium 1.9 (1.6-2.3) mg/dL Total Bilirubin (0.2-1.3) mg/dL AST (14-36) IU/L ALT (<35) IU/L Alkaline Phosphatase (38-126) U/L Total Protein (6.3-8.2) g/dL Albumin (3.5-5.0) g/dL Globulin (1.7-4.1) g/dL Albumin/Globulin Ratio (1.0-2.8) Lipase (23-300) U/L Procalcitonin 0.08 (<0.5) ng/mL Point of care testing: Urine Dip Bedside Urine Glucose Negative Bedside Urine Bilirubin - Negative Bedside Urine Ketone - Negative Urine Specific [place] 1.010 Bedside Urine Occult Blood - Negative Bedside Urine pH 6.0 Bedside Urine Protein - Negative Bedside Urine Urobilinogen - Negative Bedside Urine Nitrite - Negative Bedside Urine Leukocytes - Negative Esterase Discharge Plan Departure Patient Disposition: Home Clinical Impression: Hypokalemia Nausea & vomiting Qualifiers: Vomiting type: unspecified Vomiting Intractability: non-intractable Qualified Code(s): R11.2 - Nausea with vomiting, unspecified Discharge Date/Time: 01/15/20 21:58 Instructions: DI for Hypokalemia, DI for Nausea -- Adult, DI for Vomiting -- Adult Activity Restrictions/Additional Instructions: As discussed, today we found that your potassium was dangerously low. We have replaced this. However needs to be monitored in the future. Please follow-up with primary care provider as well as your heme onc provider. I spoke with Dr. Rand, who is on-call for Dr. Malone. Their office should be reaching out to. However please call him if you do not hear from them. Please come back to emergency department for any acute concerns such a chest pain, shortness of breath, etcetera. Prescriptions: No Action furosemide 40 mg tablet 40 mg PO DAILY RF: 0 famotidine [Heartburn Relief (famotidine)] 20 mg tablet 20 mg PO BID RF: 0 gabapentin 300 mg capsule 300 mg PO TID RF: 0 hydromorphone 4 mg tablet 4 mg PO TID PRN (Reason: pain) RF: 0 spironolactone 50 mg tablet 50 mg PO DAILY RF: 0 Xarelto 15 mg tablet 15 mg PO [id number] DOSES. RF: 0 Xarelto 20 mg tablet 20 mg PO DAILY RF: 0 Narcan 4 mg/actuation spray,non-aerosol 1 spray INTRANASAL PRN PRN (Reason: Opioid Reversal) RF: 0 ondansetron 4 mg tablet,disintegrating 4 mg PO Q6H PRN (Reason: Nausea And Vomiting) RF: 0 Referrals: Navid Malone MD [Non-Staff] - Sylvester Landaverde MD [Non-Staff] - <Percy Muir, DO - Last Filed: 01/15/20 22:09> Sign Out Provider Sign Out Attestation: Dr Muir Co-Sign Statement: I was available for consultation during this patient's emergency department visit. This chart is signed by myself for administrative purposes only. I did not have direct contact with this patient during this visit. They were seen independently by the APC.
[2020-01-15 16:42] LABS: Neutrophils Absolute Manual 2760 /uL (3000-5900); Nucleated Red Blood Cells 1 #/Diff; Total Cells Counted 100
[2020-01-15 16:43] LABS: Macrocytosis 1+; Polychromasia 1+
[2020-01-15] MEDS: POTASSIUM CHLORIDE 40 MEQ in SODIUM CHLORIDE 0.9% 500 ML 130 ML IV (16:43)
[2020-01-15 16:48] LABS: Procalcitonin 0.08 ng/mL (<0.5)
[2020-01-15 16:55] VITALS: BP 128/76; PULSE 104; O2SAT 100
[2020-01-15 16:55] LABS: Magnesium 1.9 mg/dL (1.6-2.3)
--- NOTE | 2020-01-15 17:02 | DI.CT.S_ITS ---
PROCEDURE: CT ABDOMEN PELVIS W CON INDICATIONS: vomiting, hx small bowel obstruction, hx ovarian cancer TECHNIQUE: After the administration of intravenous contrast, 5 mm thick sections acquired from the diaphragm to the symphysis. 5 mm coronal and sagittal reformats were acquired. For radiation dose reduction, the following was used: automated exposure control, adjustment of mA and/or kV according to patient size. COMPARISON: [facility], CR, XR ACUTE ABDOMEN SERIES, 01/15/2020, 15:57. FINDINGS: Image quality: Excellent. ABDOMEN: Lung bases: Moderate right pleural effusion with adjacent atelectasis. Left lung appears clear. Solid organs: Liver is normal in size and enhancement. Gallbladder grossly unremarkable. Biliary system is non dilated. Pancreas enhances normally. Spleen is normal in size and enhancement. No adrenal nodules. Kidneys demonstrate normal size and enhancement, without hydronephrosis. Peritoneum and bowel: Diffuse small bowel wall thickening is present, although suboptimal evaluation given the presence of ascites. No definite transition point is seen. There are scattered air-fluid levels. The colon appears relatively decompressed. No free air. There is diffuse ascites. Nodes and vessels: No retroperitoneal or mesenteric adenopathy by size criteria. Aorta and inferior vena cava are normal in size. Miscellaneous: No ventral hernias. PELVIS: Genitourinary: Heterogeneous cystic and solid appearing pelvic mass, measuring approximately 9.3 x 16.9 cm presumably reflect the patient's given clinical history of ovarian carcinoma. There is associated omental caking/intraperitoneal metastases Miscellaneous: No inguinal hernias or adenopathy. Bones: No suspicious bony lesions. No vertebral body compression fractures. IMPRESSION: Scattered air-fluid levels and diffuse small bowel mural thickening, without specific transition point. Cannot exclude partial or developing bowel obstruction. If clinically warranted, continued surveillance with serial abdominal radiographs could be performed. Of note, the appearance could be related to an infectious or inflammatory enteritis recommend clinical/laboratory correlation. Hypoproteinemia also in the differential. Large heterogeneous cystic and solid pelvic mass presumably reflecting the patient's given clinical history of ovarian carcinoma. Diffuse ascites and intraperitoneal metastases related to widespread metastatic disease. Moderate right pleural effusion with adjacent atelectasis Dictated by: Nicola Arciniega M.D. on 01/15/2020 at 17:54 Approved by: Nicola Arciniega M.D. on 01/15/2020 at 18:01
[2020-01-15 19:21] VITALS: BP 112/66; PULSE 110; RESP 21; O2SAT 99
[2020-01-15] MEDS: POTASSIUM CHLORIDE 20 MEQ/15 ML UDC 40 MEQ PO (20:03)
[2020-01-15 20:40] VITALS: BP 112/68; PULSE 109; O2SAT 100
[2020-01-15 21:12] LABS: HEMOLYSIS < 15 (0-50)
== END 2020-01-15 21:58 | disposition home or self-care (01) ==
PROVIDERS: Emergency Medicine; Emergency Provider Nurse Practitioner Family
DX: E87.6 Hypokalemia (principal); R11.2 Nausea with vomiting, unspecified
CPT/HCPCS: 36415; 74022; 74177; 80053; 81003; 83690; 83735; 84132; 84145; 85025; 85610; 85730; 87040; 96361; 96365; 96366; 96375; 99284; J2405; J3480